=== PATIENT | male | born 1990 | race Caucasian/White ===

== ENCOUNTER 2018-03-05 10:32 | Emergency (ER) | payer SELFPAY ==
[~2018-03-05] VITALS: Ht 170.2 cm; Wt 75.0 kg
[2018-03-05 10:47] VITALS: BP 143/78; PULSE 88; RESP 15; TEMP 97.4; O2SAT 97
[2018-03-05] MEDS ORDERED: PENI500T PO (11:14)
--- NOTE | 2018-03-05 11:21 | PD ---
HPI Chief Complaint: Oral / Dental Pain or Problem Time Seen by Provider: 10:53 Travel History International Travel<30 days: No Contact w/Intl Traveler<30days: No Traveled to known affect area: No History of Present Illness HPI 27-year-old male presents to the emergency room for evaluation of severe bilateral dental pain for the past 2 years. States it is typically on the left lower jaw but a few weeks ago and moved to the right lower jaw. Pain is constant, throbbing, worsened with eating or drinking. It radiates from the left lower jaw into the side of his head. He has been taking a lot of ibuprofen without relief in symptoms. He has also been using Anbesol. States over the past 2 years he went to the dentist and was prescribed antibiotics and pain medication. When he went back to have a procedure performed, he could not afford the $2800 bill so the dentist turned him away. He reports fever of 101 last night. Denies any other chronic medical conditions or daily medications. He does smoke cigarettes. [facility] Social History Tobacco Use: Yes Allergies-Medications (Allergen,Severity, Reaction): Coded Allergies: No Known Allergies (Unverified , 03/05/18) Review of Systems Except as stated in HPI: all other systems reviewed are Neg Physical Exam Narrative GENERAL: Well-nourished, well-developed male in no acute distress. Afebrile. Ambulatory. SKIN: Focused skin assessment warm/dry. HEAD: Normocephalic. EYES: No scleral icterus. No injection or drainage. NECK: Supple, trachea midline. No JVD or lymphadenopathy. DENTAL: Moderate decay throughout. No malocclusion. No submental, submandibular, or buccal edema or induration. No obvious abscess. No drainage. Moderate tenderness to palpation of the right lower jaw especially around tooth #29. CARDIOVASCULAR: Regular rate and rhythm without murmurs, gallops, or rubs. RESPIRATORY: Breath sounds equal bilaterally. No accessory muscle use. Data Data Last Documented VS Vital Signs Date Time Temp Pulse Resp B/P (MAP) Pulse Ox O2 Delivery O2 Flow Rate FiO2 03/05/18 10:47 97.4 88 15 143/78 (99) 97 MDM Medical Decision Making Medical Screen Exam Complete: Yes Emergency Medical Condition: Yes Medical Record Reviewed: Yes Differential Diagnosis Dentalgia, dental abscess, chronic dental pain, gingivitis Narrative Course 27-year-old male presents to the emergency room for evaluation of dental pain for the past 2 years. States over the past month he has had significant dental pain to the left lower jaw and over the past 2 weeks that is gone to the right lower jaw. Physical exam is reassuring. Patient resting comfortably. Vital signs stable. Patient is speaking easily. Moderate decay throughout. No malocclusion. No submental, submandibular, or buccal edema or induration. No obvious abscess. No drainage. Moderate tenderness to palpation of the right lower jaw especially around tooth #29. He will be given penicillin and told to follow-up with a dentist return for worsening symptoms. He understands and agrees to plan. Diagnosis Primary Impression: Dentalgia Referrals: Dentist Additional Instructions: Rest and drink plenty of fluids. Penicillin as directed, until gone. Ibuprofen as directed, as needed for symptoms. Do not take more than directed. Follow-up with a dentist. Return to the emergency room for worsening symptoms. Med/Other Pt SpecificInfo: Prescription(s) given Scripts Penicillin V Potassium (Penicillin V Potassium) 500 Mg Tab 500 MG PO Q8H for Infection for 7 Days, #21 TAB 0 Refills Prov: Myrna Sandhu MD 03/05/18 Disposition: 01 DISCHARGE HOME Condition: Stable Eulalia Baires March 05, 2018 11:21
== END 2018-03-05 11:24 | disposition home or self-care (01) ==
LOC: NEPK 10:32
DX: K08.89 Other specified disorders of teeth and supporting structures (principal); F17.210 Nicotine dependence, cigarettes, uncomplicated
CPT/HCPCS: 99283